=== PATIENT | female | born 1965 | race Caucasian/White ===

== ENCOUNTER 2022-10-08 12:32 | Day surgery (SDC) | payer OTHER ==
[2022-10-08] MEDS ORDERED: Decadron 4 MG INJ IV ONE (12:33)
[2022-10-08] MEDS ORDERED: LIDOCAINE HCL 2% 100 MG/5 ML IJ ONE (12:33)
[2022-10-08] MEDS ORDERED: DIPRIVAN 200 MG/20 ML IV ONE (14:31)
[2022-10-08] MEDS ORDERED: Lactated Ringers 1,000 ML IV ONE (14:51)
--- NOTE | 2022-10-08 14:57 | XRAY ---
Indication: Left C2-C5 MBB. Intraoperative fluoroscopy provided for 18 seconds. 2 digital spot image obtained prone submitted for interpretation demonstrates posterior needle tips projecting over the expected left C2-C5 nerve roots. Correlate with intraoperative findings/report.
--- NOTE | 2022-10-08 15:27 | XRAY ---
18 seconds of fluoroscopy was used in surgery for a left C2-C5 MBB.
== END 2022-10-08 15:00 | disposition home or self-care (01) ==
LOC: SDC-PAIN 12:32
PROVIDERS: ATTEND Psychiatry & Neurology Pain Medicine
DX: M47.812 Spondylosis without myelopathy or radiculopathy, cervical region (principal); Z79.899 Other long term (current) drug therapy
CPT/HCPCS: 64490; 64491; 64492; 72040; 77002; J1100; J2704

== ENCOUNTER 2022-11-19 11:33 | Day surgery (SDC) | payer OTHER | END 2022-11-19 11:40 | disposition home or self-care (01) | LOC: SDC-PAIN 11:33 | PROVIDERS: ATTEND Psychiatry & Neurology Pain Medicine | DX: Z53.8 Procedure and treatment not carried out for other reasons (principal) ==

== ENCOUNTER 2022-11-26 06:24 | Day surgery (SDC) | payer OTHER ==
[2022-11-26] MEDS ORDERED: BUPIVACAINE 0.5% VIAL IJ ONE (06:25)
[2022-11-26] MEDS ORDERED: Decadron 4 MG INJ IV ONE (06:25)
[2022-11-26] MEDS ORDERED: DIPRIVAN 200 MG/20 ML IV ONE (07:34)
--- NOTE | 2022-11-26 09:06 | XRAY ---
Indication: Left C2-C5 MBB. Intraoperative fluoroscopy provided for 19 seconds. 2 digital spot image submitted for interpretation demonstrates posterior needle tips projecting over the expected left C2-C5 nerve roots. Correlate with intraoperative findings/report.
--- NOTE | 2022-11-26 12:15 | XRAY ---
19 seconds of fluoroscopy was used in surgery for a left C2-C5 MBB,
[2022-11-26] MEDS ORDERED: Lactated Ringers 1,000 ML IV ONE (13:14)
== END 2022-11-26 07:41 | disposition home or self-care (01) ==
LOC: SDC-PAIN 06:24
PROVIDERS: ATTEND Psychiatry & Neurology Pain Medicine
DX: M47.812 Spondylosis without myelopathy or radiculopathy, cervical region (principal); Z79.899 Other long term (current) drug therapy
CPT/HCPCS: 64490; 64491; 64492; 72040; 77002; J1100; J2704

== ENCOUNTER 2023-01-14 11:54 | Day surgery (SDC) | payer OTHER ==
[2023-01-14] MEDS ORDERED: BUPIVACAINE 0.5% VIAL IJ ONE (11:55)
[2023-01-14] MEDS ORDERED: Decadron 4 MG INJ IV ONE (11:55)
[2023-01-14] MEDS ORDERED: LIDOCAINE HCL 1% 50 MG/5 ML VL PF IJ ONE (11:55)
[2023-01-14] MEDS ORDERED: DIPRIVAN 200 MG/20 ML IV ONE ×2 (14:05→14:15)
[2023-01-14] MEDS ORDERED: Lactated Ringers 1,000 ML IV ONE (14:36)
--- NOTE | 2023-01-14 16:57 | XRAY ---
Indication: Left C2-C5 RFA. Intraoperative fluoroscopy provided for 1 minutes 2 seconds. 2 digital spot image submitted for interpretation demonstrates posterior needle tips projecting over the expected left C2-C5 nerve roots. Correlate with intraoperative findings/report.
--- NOTE | 2023-01-14 17:12 | XRAY ---
One minute and 2 seconds of fluoroscopy was used in surgery for a left C2-C5 RFA.
== END 2023-01-14 14:49 | disposition home or self-care (01) ==
LOC: SDC-PAIN 11:54
PROVIDERS: ATTEND Psychiatry & Neurology Pain Medicine
DX: M47.812 Spondylosis without myelopathy or radiculopathy, cervical region (principal); Z79.899 Other long term (current) drug therapy
CPT/HCPCS: 64633; 64634; 72040; 77002; J1100; J2001; J2704

== ENCOUNTER 2024-09-07 09:50 | Day surgery (SDC) | payer OTHER ==
[2024-09-07] MEDS ORDERED: dexAMETHasone sodium phosphate IJ ONE (09:51)
[2024-09-07] MEDS ORDERED: LIDOCAINE HCL 2% 100 MG/5 ML IJ ONE (09:51)
[2024-09-07] MEDS ORDERED: Lactated Ringers 500 ML IV ONE (10:39)
[2024-09-07] MEDS ORDERED: propofoL IV ONE (11:49)
--- NOTE | 2024-09-07 13:01 | XRAY ---
Indication: Right C2-C5 MBB. Intraoperative fluoroscopy provided for 14 seconds. 2 digital spot image submitted for interpretation demonstrates posterior needle tips projecting over expected right C2-C5 nerve roots. Correlate with intraoperative findings/report.
--- NOTE | 2024-09-07 14:07 | XRAY ---
14 seconds of fluoroscopy was used in surgery for a right C2-C5 MBB.
== END 2024-09-07 12:09 | disposition home or self-care (01) ==
LOC: SDC-PAIN 09:50
PROVIDERS: ATTEND Psychiatry & Neurology Pain Medicine
DX: M47.812 Spondylosis without myelopathy or radiculopathy, cervical region (principal)
CPT/HCPCS: 64479; 64480; 72040; 77002; J1100; J2704

== ENCOUNTER 2024-09-28 07:02 | Day surgery (SDC) | payer OTHER ==
[2024-09-28] MEDS ORDERED: dexAMETHasone sodium phosphate IJ ONE (07:03)
[2024-09-28] MEDS ORDERED: BUPIVACAINE 0.5% VIAL IJ ONE (07:03)
[2024-09-28] MEDS ORDERED: Lactated Ringers 500 ML IV ONE (07:50)
[2024-09-28] MEDS ORDERED: propofoL IV ONE (08:42)
--- NOTE | 2024-09-28 12:30 | XRAY ---
Indication: Right C2-C5 MBB. Intraoperative fluoroscopy provided for 22 seconds. 2 digital spot images submitted for interpretation demonstrates posterior needle tips projecting over expected right C2-C5 nerve roots. Correlate with intraoperative findings/report.
--- NOTE | 2024-09-28 12:54 | XRAY ---
22 seconds of fluoroscopy was used in surgery for a right C2-C5 MBB.
== END 2024-09-28 09:17 | disposition home or self-care (01) ==
LOC: SDC-PAIN 07:02
PROVIDERS: ATTEND Psychiatry & Neurology Pain Medicine
DX: M47.812 Spondylosis without myelopathy or radiculopathy, cervical region (principal); M79.18 Myalgia, other site
CPT/HCPCS: 64490; 64491; 64492; 72040; 77002; J1100; J2704

== ENCOUNTER 2024-10-12 12:26 | Day surgery (SDC) | payer OTHER ==
[2024-10-12] MEDS ORDERED: LIDOCAINE HCL 1% AMPUL 5 ML IJ ONE (12:27)
[2024-10-12] MEDS ORDERED: dexAMETHasone sodium phosphate IJ ONE (12:27)
[2024-10-12] MEDS ORDERED: BUPIVACAINE 0.5% VIAL IJ ONE (12:27)
[2024-10-12] MEDS ORDERED: propofoL IV ONE (13:35)
--- NOTE | 2024-10-12 15:18 | XRAY ---
Indication: Right C2-C5 RFA. Intraoperative fluoroscopy provided for 17 seconds. 3 digital spot image submitted for interpretation demonstrates posterior needle tips projecting over expected right C2-C5 nerve roots. Correlate with intraoperative findings/report.
--- NOTE | 2024-10-12 15:22 | XRAY ---
17 seconds of fluoroscopy was used in surgery for a right C2-C5 RFA.
== END 2024-10-12 14:10 | disposition home or self-care (01) ==
LOC: SDC-PAIN 12:26
PROVIDERS: ATTEND Psychiatry & Neurology Pain Medicine
DX: M47.812 Spondylosis without myelopathy or radiculopathy, cervical region (principal)
CPT/HCPCS: 64633; 64634; 72040; J1100; J2704

== ENCOUNTER 2024-10-19 12:33 | Day surgery (SDC) | payer OTHER ==
[2024-10-19] MEDS ORDERED: dexAMETHasone sodium phosphate IJ ONE (12:34)
[2024-10-19] MEDS ORDERED: LIDOCAINE HCL 1% AMPUL 5 ML IJ ONE (12:34)
[2024-10-19] MEDS ORDERED: BUPIVACAINE 0.5% VIAL IJ ONE (12:34)
[2024-10-19] MEDS ORDERED: Lactated Ringers 500 ML IV ONE (13:49)
[2024-10-19] MEDS ORDERED: propofoL IV ONE (15:13)
--- NOTE | 2024-10-19 16:45 | XRAY ---
Indication: Left C2-C5 RFA. Intraoperative fluoroscopy provided for 22 seconds. 4 digital spot image submitted for interpretation demonstrates posterior needle tips projecting over expected left C2-C5 nerve roots. Correlate with intraoperative findings/report.
--- NOTE | 2024-10-19 16:50 | XRAY ---
22 seconds of fluoroscopy was used in surgery for a left C2-C5 RFA.
== END 2024-10-19 16:02 | disposition home or self-care (01) ==
LOC: SDC-PAIN 12:33
PROVIDERS: ATTEND Psychiatry & Neurology Pain Medicine
DX: M47.812 Spondylosis without myelopathy or radiculopathy, cervical region (principal)
CPT/HCPCS: 64633; 64634; 72040; J1100; J2704